=== PATIENT | female | born 1950 | race Caucasian/White ===

== ENCOUNTER 2024-02-07 06:15 | Day surgery (SDC) | payer BC, SELFPAY ==
[2024-02-07 06:17] VITALS: BMI 33.9
[2024-02-07 06:19] VITALS: BMI 33.9
[2024-02-07 06:20] VITALS: BP 170/90
[2024-02-07] MEDS: ALCAINE 0.5% EYE DROPS 1 DROP OPHTH (06:24)
[2024-02-07] MEDS: CYCLOGYL 1% EYE DROPS 1 DROP OPHTH (06:24)
[2024-02-07] MEDS: POLYTRIM OPHTHALMIC SOLUTION 1 DROP OPHTH (06:24)
[2024-02-07] MEDS: PRED FORTE 1% EYE DROPS 1 DROP OPHTH (06:24)
[2024-02-07] MEDS: MYDRIACYL 1 DROP OPHTH (06:24)
[2024-02-07] MEDS: NEO-SYNEPHRINE 2.5% OPH SOL. 1 DROP OPHTH (06:24)
[2024-02-07] MEDS: ACUVAIL 10 DROPS OPHTH (06:25)
[2024-02-07] MEDS: NORMOSOL-R 1000 IV (07:15)
[2024-02-07] MEDS: AKTEN OPHTHALMIC GEL 1 ML OPHTH (07:16)
[2024-02-07 08:00] VITALS: BP 140/79
[2024-02-07 08:15] VITALS: BP 158/78
== END 2024-02-07 08:26 | disposition home or self-care (01) ==
LOC: SDS 06:15
PROVIDERS: ATTENDING PHYSICIAN Ophthalmology
DX: H25.12 Age-related nuclear cataract, left eye (principal)
CPT/HCPCS: 66984; V2632

== ENCOUNTER → 2024-05-24 06:49 | Outpatient (REF) | payer BC, SELFPAY ==
[2024-05-24 07:18] LABS: % Basophils 0.8 % (0-2); % Eosinophils 2.4 % (0-6); % Immature Granulocytes 0.2 % (0-0.5); % Lymphocytes 37.1 % (20.5-51.1); % Monocytes 6.8 % (1.7-9.3); % Neutrophils 52.7 % (42.2-75.2); Absolute Basophils 0.1 10^3/uL (0-0.2); Absolute Eosinophils 0.2 10^3/uL (0-0.7); Absolute Lymphocytes 2.3 10^3/uL (1.2-3.4); Absolute Monocytes 0.4 10^3/uL (0.1-0.6); Absolute Neutrophils 3.3 10^3/uL (1.4-6.5); Hematocrit 38.9 % (37.0-47.0); Hemoglobin 12.2 g/dL (12.0-16.0); Mean Corp Hgb Conc. 31.4 g/dL (33.0-37.0); Mean Corpuscular Hgb 19.8 pg (27.0-31.0); Mean Platelet Volume 9.3 fL (7.4-10.4); Nucleated Red Blood Cells % 0 %; Platelet Count 252 10^3/uL (130-400); Red Blood Cell Count 6.17 10^6/uL (4.20-5.40); Red Cell Dist. Width 17.4 % (11.5-14.5); White Blood Cell Count 6.3 10^3/uL (4.8-10.8)
[2024-05-24 07:33] LABS: ALT (SGPT) 19 U/L (0-35); AST (SGOT) 23 U/L (14-36); Albumin 4.4 g/dl (3.5-5.0); Alkaline Phosphatase 70 U/L (38-126); Blood Urea Nitrogen 20 mg/dl (7-17); Calcium 9.5 mg/dl (8.4-10.2); Carbon Dioxide 27 mmol/L (22-30); Chloride 107 mmol/L (98-107); Glucose 93 mg/dl (70-99); HDL Cholesterol 80 mg/dl; LDL Cholesterol, Calculated 119 mg/dl; Potassium 4.4 mmol/L (3.5-5.1); Sodium 140 mmol/L (135-145); Total Bilirubin 0.6 mg/dl (0.2-1.3); Total Cholesterol 218 mg/dl (50-199); Total Protein 7.3 g/dl (6.3-8.2); Triglyceride 96 mg/dl (10-149); Very Low Density Lipoprotein 19 mg/dl (0-30); eGFR > 60.00
[2024-05-24 08:00] LABS: TSH 0.75 uIU/ml (0.47-4.68)
[2024-05-24 09:08] LABS: Glycohemoglobin (HgbA1c) 5.8 % (4.0-5.6)
== END ==
LOC: REG 06:49
PROVIDERS: ATTENDING PHYSICIAN Physician Assistant Medical
DX: Z00.00 Encounter for general adult medical examination without abnormal findings (principal)
CPT/HCPCS: 80053; 80061; 83036; 84443; 85025

== ENCOUNTER → 2024-06-21 08:07 | Outpatient (REF) | payer BC, SELFPAY | LOC: RAD 08:07 | PROVIDERS: ATTENDING PHYSICIAN Registered Nurse; FAMILY PHYSICIAN Physician Assistant Medical | DX: S29.9XXA Unspecified injury of thorax, initial encounter (principal) | CPT/HCPCS: 71101 ==

== ENCOUNTER 2024-08-31 06:40 | Day surgery (SDC) | payer BC, SELFPAY ==
[2024-08-31 12:13] VITALS: BMI 34.8
[2024-08-31 12:14] VITALS: BMI 34.8
[2024-08-31] MEDS: ALCAINE 0.5% EYE DROPS 1 DROP OPHTH (12:15)
[2024-08-31] MEDS: MYDRIACYL 1 DROP OPHTH (12:15)
[2024-08-31] MEDS: ACUVAIL 1 DROPS OPHTH (12:15)
[2024-08-31] MEDS: CYCLOGYL 1% EYE DROPS 1 DROP OPHTH (12:15)
[2024-08-31] MEDS: POLYTRIM OPHTHALMIC SOLUTION 1 DROP OPHTH (12:15)
[2024-08-31] MEDS: NEO-SYNEPHRINE 2.5% OPH SOL. 1 DROP OPHTH (12:15)
[2024-08-31] MEDS: PRED FORTE 1% EYE DROPS 1 DROP OPHTH (12:15)
[2024-08-31 12:16] VITALS: BP 163/97
[2024-08-31] MEDS: AKTEN OPHTHALMIC GEL 1 ML OPHTH (12:33)
[2024-08-31 13:17] VITALS: BP 153/94
[2024-08-31 13:31] VITALS: BP 135/83
== END 2024-08-31 13:35 | disposition home or self-care (01) ==
LOC: SDS 06:40
PROVIDERS: ATTENDING PHYSICIAN Ophthalmology
DX: H25.11 Age-related nuclear cataract, right eye (principal)
CPT/HCPCS: 66984; V2632

== ENCOUNTER 2025-06-22 11:37 | Emergency (ER) | payer BC, SELFPAY ==
[2025-06-22 11:40] VITALS: BP 123/77
[2025-06-22] MEDS: ADENOCARD 6 MG IV (11:44)
[2025-06-22 11:45] VITALS: BP 138/88
[2025-06-22 11:50] VITALS: BMI 32.9
[2025-06-22 12:00] VITALS: BP 119/83
--- NOTE | 2025-06-22 12:14 | ED.GENMED ---
History of Present Illness
General
Chief Complaint: Heart Rate Problem
Time Seen by Provider: 06/22/25 11:47
History of Present Illness
History of Present Illness:
75-year-old female presents to the emergency department for evaluation of an elevated heart rate. She has a history of SVT and has had episodes like this quite frequently. Typically able to interrupt her symptoms with metoprolol however this did
not work today. Denies any chest pain or dyspnea. She was previously recommended to undergo an ablation but has declined due to stubbornness
Past History
Past History
ED Past Medical History: Other
ED Past Surgical History: Orthopedic (R hip fx w/ sx and revision in 2018)
Social History
Tobacco: Former smoker
Alcohol: None
Drug: None
Personal:
Living: with family
Employment: Employed
Family History
Family History: Other ( n/c)
Review of Systems
Review of Systems
Allergies reviewed?: Yes
All Other Systems: ROS reviewed and negative except as documented in HPI and ROS
Phy Exam
Physical Exam
Physical Exam:
GEN: Well appearing, NAD, WDWN
HEENT: Oral mucosa moist, no scleral icterus
Cardiac: Markedly tachycardic
Lung: No respiratory distress, no tachypnea
MSK: No gross deformity or injuries
Skin: Good color, no pallor or jaundice, no rashes
Neuro: AO x3, moves all extremities freely
Psych: Calm, cooperative
Course
Orders/Labs/Results
Orders:
Orders
06/22/25 11:44
Adenosine [Adenocard] 6 mg IV NOW STA
Vital Signs
Initial and Last Documented VS:
Initial Vital Signs
Pulse Resp BP Pulse Ox
178 20 123/77 98
06/22/25 11:40 06/22/25 11:40 06/22/25 11:40 06/22/25 11:40
Last Documented Vital Signs
Temp Pulse Resp BP Pulse Ox
98.2 F 96 17 119/83 98
06/22/25 11:49 06/22/25 12:15 06/22/25 12:15 06/22/25 12:00 06/22/25 12:14
MDM/Problems Addressed
MDM/Problems Addressed:
Vagal maneuvers failed x 2, 6 mg of IV adenosine was given with good results. Patient observed for short period of time in the ED with no recurrent SVT, fluids and discharged in stable condition
Comment
Comment:
Telemetry strips reveal NSVT converting successfully after administration of adenosine
*Pulse Oximetry
SaO2: 98
Oxygen Mode of Delivery: Room air
Patient hypoxic: no
*Critical Care Note
Total Time (30-74mins, 75-104mins- exclusive of procedures): Not Applicable
ED Attending Note
-
Portions of this chart may have been created with voice recognition software.� Occasional wrong word or��sound alike� substitutions may have occurred due to the inherent limitations of voice recognition software.
Discharge Plan
Departure
Patient Disposition: Home (Routine Discharge)
Date of Disposition: 06/22/25
Time of Disposition: 12:14
Patient with high blood pressure during this ER visit?: No
Discharge Problem:
SVT (supraventricular tachycardia)
Prescriptions:
No Action
No Current Medications
0
Referrals:
Ambar Hartmann PA [Family Provider, Family Practice]
Interventions
Interventions:
*Risk Screen - Suicide Last Done: 06/22/25 11:40
*General Assessment Last Done: 06/22/25 11:40
*Neglect/Abuse Screening Last Done: 06/22/25 11:40
*ED- Fall Risk Assessment Last Done: 06/22/25 11:40
*ED COVID-19 Vaccine History Last Done: 06/22/25 11:40
*Nursing Disposition Last Done: 06/22/25 12:29
ED- Cardiac Assessment Last Done: 06/22/25 12:03
ED- Pulmonary Assessment Last Done: 06/22/25 11:40
Discharge Date and Time
Discharge Date/Time: 06/22/25 12:29
Print Language: WELSH
== END 2025-06-22 12:29 | disposition home or self-care (01) ==
LOC: EMR 11:37
PROVIDERS: EMERGENCY PHYSICIAN Emergency Medicine; FAMILY PHYSICIAN Physician Assistant Medical
DX: I47.10 Supraventricular tachycardia, unspecified (principal); Z87.891 Personal history of nicotine dependence
CPT/HCPCS: 96374; 99285